=== PATIENT | male | born 1990 | race Caucasian/White ===

== ENCOUNTER 2019-09-18 09:22 | Outpatient (CLI) | payer OTHER, SELFPAY ==
[2019-09-15 09:51] VITALS: BMI 29.9
[2019-09-18] VITALS (7 sets, daily range): BP systolic 111–124; BP diastolic 69–86; PULSE 55–69; RESP 16–20; TEMP 36.6; O2SAT 97
--- NOTE | ~2019-09-18 | CT_ITS ---
EXAMINATION: 1. XR myelogram spine lumbosacral 2. CT lumbar spine w con DATE: 09/18/2019 11:57 INDICATION: Lumbar fusion. TECHNIQUE: The procedure including the risks, benefits, and alternatives was discussed with the patie nt. Risks discussed included spinal headache, cerebrospinal fluid leak, bleeding, and infection. The patient understood the risks and agreed to proceed. A timeout was performed to verify the patient' s name, date of , and procedure to be performed. The skin overlying the L2-L3 level was prepped and draped in usual sterile fashion. Subcutaneous 1% lidocaine was used for local anesthesia. A 22 gauge spinal needle was advanced under fluoroscopic guidance. The needle was removed and the entry s ite was cleaned and dressed. There were no immediate complications. Fluoroscopy exposure time was 0. 1 minutes. The total number of images was 7. Computed tomography (CT) of the lumbar spine was perform ed without intravenous contrast. Automated exposure control and iterative reconstruction technique we re employed. The dose-length product was 936.34 mGy-cm. COMPARISON: None. FINDINGS: LUMBAR MYELOGRAM: Real-time fluoroscopy demonstrates the needle at the L2-L3 level. There are changes of anterior and posterior fusion procedures at L5-S1. There is indentation of the thecal sac at mult iple levels as will be described in more detail on the postmyelogram CT. POST-MYELOGRAM CT LUMBAR SPINE: There is 3 degrees dextrocurvature of lumbar spine. There is 3 mm ret rolisthesis of L5 on S1. There are changes of anterior and posterior fusion procedures at L5-S1 with discectomy, interbody device, anterior plate and screws, and right-sided pedicle screws. There are Sc hmorl's nodes of the superior and inferior endplates of L3. Intervertebral disc heights are normal. T he distal spinal cord morphology is normal. The conus medullaris is at L1. The following disc levels are specifically discussed: L1-L2: The disc does not extend beyond the endplate margin. There is mild bilateral facet joint osteo arthritis. There is no neural foraminal stenosis. There is no central canal stenosis. L2-L3: The disc does not extend beyond the endplate margin. There is mild bilateral facet joint osteo arthritis. There is no neural foraminal stenosis. There is no central canal stenosis. L3-L4: The disc is mildly bulging. There is mild bilateral facet joint osteoarthritis. There is mild bilateral neural foraminal stenosis. There is mild central canal stenosis. L4-L5: The disc is bulging. There is mild bilateral facet joint osteoarthritis. There is mild bilater al neural foraminal stenosis. There is mild central canal stenosis. L5-S1: There is mild right and moderate left facet joint osteoarthritis. There is moderate left neura l foraminal stenosis. There is mild central canal stenosis. IMPRESSION: 1. Mild lumbar spondylosis. 2. Anterior and posterior fusion procedures at L5-S1. Reviewed, dictated and finalized at location A. CT [employer]PRES[employer]IVE IMPRESSION: 1. Mild lumbar spondylosis. 2. Anterior and posterior fusion procedures at L5-S1.
[2019-09-18 10:23] LABS: Mean Platelet Volume 9.5 fl (7.4-10.4); Platelet Count Result 249 k/mm3 (150-375)
[2019-09-18 10:34] LABS: Prothrombin Time 12.7 Seconds (11.1-14.7)
--- NOTE | 2019-09-18 12:12 | SUR.PHASEII ---
1145- bandaid to lower back dry and intact. pt lying on stomach at this time. tolerated po well.
--- NOTE | 2019-09-18 13:20 | SUR.PHASEII ---
1315- instructions reviewed with pt and family members.
== END 2019-09-18 13:32 | disposition home or self-care (01) ==
PROVIDERS: Radiology Diagnostic Radiology
DX: N50.82 Scrotal pain (principal); Z98.1 Arthrodesis status; M47.896 Other spondylosis, lumbar region
CPT/HCPCS: 36415; 62304; 72132; 85049; 85610; Q9965

== ENCOUNTER 2020-01-23 06:24 | Outpatient (CLI) | payer OTHER, SELFPAY ==
[2020-01-23 17:27] LABS: SARS-CoV-2 RNA PCR Negative
== END 2020-01-23 06:25 | disposition home or self-care (01) ==
LOC: ANHCOVIDDT 06:24
PROVIDERS: PCP Family Medicine; Visit Provider Otolaryngology
DX: Z01.812 Encounter for preprocedural laboratory examination (principal); Z11.59 Encounter for screening for other viral diseases
CPT/HCPCS: 87635; C9803; U0003

== ENCOUNTER 2020-01-26 03:14 | Day surgery (SDC) | payer OTHER, SELFPAY ==
[2020-01-14 09:38] VITALS: BMI 29.9
[2020-01-26] VITALS (10 sets, daily range): BP systolic 88–123; BP diastolic 55–84; PULSE 47–79; RESP 12–21; TEMP 36.5–36.8; O2SAT 97–100
--- NOTE | 2020-01-26 06:10 | P.HP_ITS ---
History of Present Illness History of Present Illness Consent: Risks, benefits, and alternatives have been discussed and questions answered. Patient agrees to proceed with procedure. Chief complaint: Excision Lesion Right Floor Of Nose Narrative: Arslan Nielsen is a 29 year old male he has a nonhealing ulcer in the floor of the right nose he has tried antibiotics multiple times and has not healed he is admitted outpatient excision of the lesion of the nose Review of Systems Review of Systems: All systems reviewed & are unremarkable except as noted in HPI and below Meds Home Medications and Allergies Home Medications Medication Instructions Recorded Confirmed Type gabapentin 300 mg PO QID 09/15/19 01/14/20 History hydrocodone-acetaminophen [[place]] 1 tablet PO BID 09/15/19 01/14/20 History naproxen 500 mg PO BID 09/15/19 01/14/20 History sertraline 150 mg PO DAILY 09/15/19 01/14/20 History cyclobenzaprine 10 mg PO TID 01/14/20 01/14/20 History Allergies Allergy/AdvReac Type Severity Reaction Status Date / Time No Known Allergies Allergy Verified 01/14/20 09:40 Assessment and Plan Additional Plan Plan is for an excision of a lesion ulcerated lesion of the floor of the nose right nose
--- NOTE | 2020-01-26 06:12 | WPDHPUPDATE1 ---
History and Physical Update Update Date/Time: 01/26/20 06:12 History and Physical has been reviewed, including an updated exam of the patient. There are NO changes in the patient's condition. Risks, benefits, and alternatives have been discussed and questions answered. Patient agrees to proceed with procedure.
[2020-01-26] MEDS: FAMOTIDINE 20 MG/2 ML VIAL IV PUSH (07:10)
[2020-01-26] MEDS: LACTATED RINGERS 1,000 ML 30 ML IV CONT ×2 (07:10→09:49)
--- NOTE | 2020-01-26 08:11 | WPDANESEPPF ---
Anes - Initial Pre Proc Eval Procedure: Operation Date: 01/26/20 09:00 Proposed Procedures p Excision Lesion Right Floor Of Nose - Andre Anguiano MD Date/Time: 01/26/20 08:11 Surgeon: Andre Anguiano MD Pre Op Diagnosis: Excision Lesion Right Floor Of Nose Patient Data Age: 29 Gender: M Height: 5 ft 11 in Weight: 96 kg Allergies Allergy/AdvReac Type Severity Reaction Status Date / Time No Known Allergies Allergy Verified 01/26/20 07:11 Home Medications Medication Instructions Recorded Confirmed Type gabapentin 300 mg PO QID 09/15/19 01/26/20 History hydrocodone-acetaminophen [[place]] 1 tablet PO BID 09/15/19 01/26/20 History naproxen 500 mg PO BID 09/15/19 01/26/20 History sertraline 150 mg PO DAILY 09/15/19 01/26/20 History cyclobenzaprine 10 mg PO TID 01/14/20 01/26/20 History Patient hx anesthesia problems: none Family hx anesthesia problems: none [facility] Past Medical History Medical History (Updated 01/26/20 @ 08:11 by Demond Weinberg MD) Anxiety Depression Anes - Eval Final PreProcedure Day of Procedure 01/26/20 08:11 Patient weight: normal Heart: regular rate and rhythm Lungs: clear to auscultation Airway: Mallampati scale class II Neurological: alert and oriented Last oral intake: >/= 8 hours ASA classification: II Emergent: no Anesthetic plan: proceed Anesthesia type and monitoring: general (ETT or LMA) ETT and standard monitoring Informed Consent: The patient's anesthetic plan and its attendant risks and benefits were discussed with the patient/family/POA. Questions were solicited and answers provided to the satisfaction of the patient/family/POA.
[2020-01-26] MEDS: LIDO 1%/EPINEPHRINE 1:100,000 20 ML VIAL INFILTRATE (08:56)
[2020-01-26] MEDS: OXYMETAZOLINE HCL 0.05% NAS 15 ML BTL (*BKC) 1 SPRAY NASAL (09:05)
--- NOTE | 2020-01-26 09:16 | PM.PROC ---
Procedure Note - Detailed Date of procedure: 01/26/20 Pre-op diagnosis: Excision Lesion Right Floor Of Nose Ulcerated lesion of floor of the right nose Post-op diagnosis: same Procedure performed: Patient was prepped and draped general anesthesia the area of the ulcer on the floor of the right nose was injected with xylocaine with adrenaline with 15 blade the ulcer was totally excise the base cauterized and packed with hematuria and and sponge Surgeon: Andre Anguiano MD
--- NOTE | 2020-01-26 09:17 | PM.PROC ---
Procedure Note - Detailed Date of procedure: 01/26/20 Pre-op diagnosis: Excision Lesion Right Floor Of Nose Ulcerated lesion floor of the nose Post-op diagnosis: same Procedure performed: Excision ulcer floor of the nose Description of procedure: Patient was prepped and draped fashion anesthesia injected xylocaine with Adrenalin wide local incision was made the floor of the nose ulcer base cauterized packed with the mother Anesthesia: GLMA Surgeon: Andre Anguiano MD Estimated blood loss (mL): 10 Drains: No Packing: Yes Pathology: yes Complications: No immediate complications Condition: stable Disposition: PACU
== END 2020-01-26 11:35 | disposition home or self-care (01) ==
PROVIDERS: PCP Family Medicine; Visit Provider Otolaryngology
PROC: (CPT 11441; principal; 2020-01-26 09:00)
DX: L98.499 Non-pressure chronic ulcer of skin of other sites with unspecified severity (principal); F41.8 Other specified anxiety disorders
CPT/HCPCS: 11441; 88305; 88312; A9270; J1100; J2250; J2405; J2704; J3010; J7120

== ENCOUNTER 2020-03-03 10:35 | Outpatient (CLI) | payer OTHER, SELFPAY ==
--- NOTE | ~2020-03-03 | MR_ITS ---
EXAMINATION: MR lumbar spine wo/w con DATE: 03/03/2020 11:48 INDICATION: Low back pain radiating down the legs. TECHNIQUE: Magnetic resonance imaging (MRI) of the lumbar spine was performed without and with 19 mL MultiHance intravenous contrast. Sequences included sagittal T2-weighted FSE, sagittal STIR FSE, and sagittal and axial T1-weighted FSE. Postcontrast sequences included axial T2-weighted FSE and axial a nd sagittal T1-weighted FS FSE. COMPARISON: CT lumbar spine 09/18/2019 FINDINGS: There is 5 degrees dextrocurvature of lumbar spine. There are changes of anterior and poste rior fusion procedures at L5-S1 with discectomy, interbody device, anterior plate and screws, and rig ht-sided pedicle screws. There are Schmorl's nodes at L2-L3 and L3-L4. Intervertebral disc heights ar e normal. The distal spinal cord signal intensity is normal. The conus medullaris is at T12-L1. The f ollowing disc levels are specifically discussed: L1-L2: The disc does not extend beyond the endplate margin. There is no facet joint osteoarthritis. T here is no neural foraminal stenosis. There is no central canal stenosis. L2-L3: The disc does not extend beyond the endplate margin. There is mild bilateral facet joint osteo arthritis. There is no neural foraminal stenosis. There is no central canal stenosis. L3-L4: The disc does not extend beyond the endplate margin. There is no facet joint osteoarthritis. T here is no neural foraminal stenosis. There is no central canal stenosis. L4-L5: The disc is mildly bulging. There is moderate bilateral facet joint osteoarthritis. There is m ild bilateral neural foraminal stenosis. There is no central canal stenosis. L5-S1: There is mild left facet joint osteoarthritis. There is moderate left neural foraminal stenosi s. There is mild central canal stenosis with posterior decompression. IMPRESSION: 1. Moderate left neural foraminal stenosis at L5-S1. Otherwise mild lumbar spondylosis. 2. Anterior and posterior fusion procedures at L5-S1. Reviewed, dictated and finalized at location B. IMPRESSION: 1. Moderate left neural foraminal stenosis at L5-S1. Otherwise mild lumbar spon dylosis. 2. Anterior and posterior fusion procedures at L5-S1.
[2020-03-03 11:06] LABS: Estimated Glomerular Filt Rate > 60
== END 2020-03-03 10:36 | disposition home or self-care (01) ==
PROVIDERS: PCP Family Medicine
DX: M47.896 Other spondylosis, lumbar region (principal); Z98.1 Arthrodesis status
CPT/HCPCS: 36415; 72158; A9577